=== PATIENT | female | born 1990 | race Caucasian/White ===

== ENCOUNTER 2020-08-03 14:22 | Emergency (ER) | payer OTHER ==
[~2020-08-03] VITALS: Ht 172.7 cm; Wt 83.9 kg
[2020-08-03] MEDS ORDERED: ALLEGRA-D 24 H1 EACH PO (15:17)
[2020-08-03] MEDS ORDERED: ZANAFLEX4 MG PO (19:40)
[2020-08-03 20:15] VITALS: BP 120/70
== END 2020-08-03 20:15 | disposition home or self-care (01) ==
LOC: M.ERS 14:22
DX: S16.1XXA Strain of muscle, fascia and tendon at neck level, initial encounter (principal); S29.012A Strain of muscle and tendon of back wall of thorax, initial encounter; Z88.6 Allergy status to analgesic agent; Z88.2 Allergy status to sulfonamides; Z88.5 Allergy status to narcotic agent; V89.2XXA Person injured in unspecified motor-vehicle accident, traffic, initial encounter; Y93.89 Activity, other specified; Y92.89 Other specified places as the place of occurrence of the external cause; Y99.8 Other external cause status

== ENCOUNTER 2021-08-30 21:16 | Emergency (ER) | payer OTHER ==
[~2021-08-30] VITALS: Ht 172.7 cm; Wt 95.3 kg
[~2021-08-30 21:16] MED LIST: ALLEGRA-D 24 H1 EACH PO; ZANAFLEX4 MG PO
[2021-08-30 23:35] VITALS: BP 120/65
[2021-08-31] MEDS ORDERED: TESSALON PERLE100 MG PO (07:40)
[2021-08-31] MEDS ORDERED: AUGMENTIN 875-1 EACH PO (08:00)
== END 2021-08-30 23:35 | disposition left against medical advice (07) ==
LOC: M.ERS 21:16
DX: U07.1 COVID-19 (principal); Z53.21 Procedure and treatment not carried out due to patient leaving prior to being seen by health care provider

== ENCOUNTER 2021-08-31 06:13 | Emergency (ER) | payer OTHER ==
[~2021-08-31] VITALS: Ht 172.7 cm; Wt 95.3 kg
[2021-08-31 06:38] LABS: HEMATOCRIT 31.7 % (37.0-47.0); HEMOGLOBIN 10.9 gm/dL (12.0-15.0); MCHC 34.4 g/dL (28.0-37.0); MCV 87.1 fL (80.0-100.0); MPV 9.1 fl. (7.2-11.1); NUCLEATED RBCS 0 /100WBC; PLATELET COUNT* 99 thou/uL (150-400); RBC 3.64 mil/uL (4.20-5.00); RDW-CV 12.9 % (10.5-14.5); WBC 2.9 thou/uL (4.0-11.0)
[2021-08-31 06:49] LABS: CALCIUM 7.8 mg/dL (8.5-10.1); CREATININE 0.7 mg/dL (0.6-1.3); POTASSIUM 3.5 mmol/L (3.5-5.1)
[2021-08-31 06:54] LABS: ALBUMIN 2.8 g/dL (3.4-5.0); MAGNESIUM 1.7 mg/dL (1.8-2.4); TOTAL BILIRUBIN 0.2 mg/dL (<0.1-1.0); TOTAL PROTEIN 6.3 g/dL (6.4-8.2)
[2021-08-31 07:39] LABS: URINE BILIRUBIN NEGATIVE (Negative); URINE BLOOD NEGATIVE (Negative); URINE CLARITY CLEAR; URINE COLOR YELLOW; URINE GLUCOSE-RANDOM NEGATIVE (Negative); URINE LEUKOCYTES-REFLEX TRACE (Negative); URINE NITRITE-REFLEX NEGATIVE (Negative); URINE PROTEIN NEGATIVE (Negative)
[2021-08-31] MEDS ORDERED: TESSALON PERLE100 MG PO (07:40)
[2021-08-31 07:42] LABS: URINE KETONES 3+ (Negative)
[2021-08-31 07:46] LABS: ACETEST (KETONE CONFIRMATORY) Moderate (Negative)
[2021-08-31 07:49] LABS: ABSOLUTE LYMPHOCYTES 0.4 thou/uL (0.8-5.3); ABSOLUTE MONOCYTES 0.4 thou/uL (0.0-1.2); ABSOLUTE NEUTROPHILS 2.1 thou/uL (1.6-8.1); PLATELET ESTIMATE DECREASED
[2021-08-31 07:54] LABS: SQUAMOUS >10 Many /LPF (0-3)
[2021-08-31 07:55] LABS: CASTS None Seen /LPF (None Seen); CRYSTALS None Seen /LPF (None Seen); URINE RBC None Seen /HPF (0-2); URINE WBC-REFLEX 6-15 Few /HPF (0-5)
[2021-08-31] MEDS ORDERED: AUGMENTIN 875-1 EACH PO (08:00)
[2021-08-31 08:09] VITALS: BP 146/68
== END 2021-08-31 08:10 | disposition home or self-care (01) ==
LOC: M.ERS 06:13
PROVIDERS: Emergency Medicine
DX: U07.1 COVID-19 (principal); N39.0 Urinary tract infection, site not specified; Z88.2 Allergy status to sulfonamides; Z88.6 Allergy status to analgesic agent; Z88.1 Allergy status to other antibiotic agents